=== PATIENT | female | born 1955 | race Caucasian/White ===

== ENCOUNTER 2023-04-22 17:45 | Emergency (ER) | payer MEDICARE, SELFPAY ==
[2023-04-22 17:56] VITALS: BP 131/95; PULSE 94; RESP 18; TEMP 37.1; O2SAT 95; BMI 29.5
--- NOTE | 2023-04-22 18:00 | XR_ITS ---
The [address] [address] Patient Name: REHAN ARTEAGA MRN: [id number] date: 1955 Sex: F Assigned Patient Location: ER Current Patient Location: ER Accession/Order Number: [id number] Exam Date: 04/22/2023 18:05 Report Date: 04/22/2023 18:44 At the request of: NAWAF FARFAN Procedure: XR knee LT 4V EXAM: XR knee LT 4V HISTORY: Knee pain after fall COMPARISON: None. TECHNIQUE: 4 views FINDINGS: No osseous lesion, fracture, dislocation or subluxation. Joint spaces are unremarkable for patient's age. Small medial compartment osteophytes.. No visualized effusion. No visualized soft tissue edema. XR/XR knee LT 4V IMPRESSION: No visualized acute abnormality. Electronically authenticated by: KERRY BULLARD Date: 04/22/2023 18:44
--- NOTE | 2023-04-22 18:01 | ED.LOWEXI1 ---
HPI - Extremity Injury (Lower) General Chief Complaint: Extremity Injury, Lower Stated Complaint: KNEE INJURY Time Seen by Provider: 04/22/23 17:57 Source: patient Mode of arrival: walk-in History of Present Illness HPI Narrative: patient is a 67-year-old female who presents to the emergency department for the evaluation of a left knee injury that occurred three weeks ago. Patient states she missed a step outside her home and fell. She does not know the exact mechanism of injury whether it was twisting or falling on the knee. She had no other associated injuries. She states she called her PCPs office today for evaluation after three weeks because she just returned from [place]. They referred her to the emergency department. She reports pain with weightbearing. No medications prior to arrival. She denies pain to the left ankle or foot. Related Data Previous Rx's Medication Instructions Recorded methylprednisolone 4 mg tablets in 4 mg PO DAILY #21 ea 04/22/23 a dose pack (Medrol (Olvin)) naproxen sodium 550 mg tablet 550 mg PO BID PRN pain #10 tabs 04/22/23 Allergies Allergy/AdvReac Type Severity Reaction Status Date / Time No Known Drug Allergies Allergy Verified 04/22/23 17:56 Review of Systems ROS Constitutional Denies: fever or chills Ears, nose, mouth, and throat Denies: throat pain or neck pain Cardiovascular Denies: chest pain Respiratory Denies: shortness of breath Gastrointestinal Denies: nausea or vomiting Musculoskeletal Reports: joint pain and limited range of motion; Denies: back pain or neck pain Integumentary/Breast Denies: rash Neurological Denies: headache PFSH PFSH Social History Smoking status: Current every day smoker Exam Narrative Exam Narrative: Gen.: Awake, alert, in no distress Head: Normocephalic, atraumatic ENT: Moist mucous membranes Respiratory: No respiratory distress Extremities: left knee with pain on flexion and extension, no bony tenderness of the left ankle or left tibia. No significant swelling, bruising or obvious deformity noted to the left knee. Crepitance on movement of the left knee. Diffuse mild tenderness of the anteromedial aspect of the distal thigh Psych: Normal mood and affect Neuro: No focal neuro deficit Skin: Warm, dry, intact Constitutional Vital Signs, click to edit/add: Last Vital Signs Temp 98.8 F 04/22/23 17:56 Pulse 94 H 04/22/23 17:56 Resp 18 04/22/23 17:56 BP 131/95 H 04/22/23 17:56 Pulse Ox 95 04/22/23 17:56 O2 Del Method Room Air 04/22/23 17:56 Course Vital Signs Vital signs: Vital Signs Temperature 98.8 F 04/22/23 17:56 Pulse Rate 94 H 04/22/23 17:56 Respiratory Rate 18 04/22/23 17:56 Blood Pressure 131/95 H 04/22/23 17:56 Pulse Oximetry 95 04/22/23 17:56 Oxygen Delivery Method Room Air 04/22/23 17:56 Temperature 98.8 F 04/22/23 17:56 Pulse Rate 94 H 04/22/23 17:56 Respiratory Rate 18 04/22/23 17:56 Blood Pressure 131/95 H 04/22/23 17:56 Pulse Oximetry 95 04/22/23 17:56 Oxygen Delivery Method Room Air 04/22/23 17:56 MDM - Extremity Injury (Lower) MDM Narrative Medical decision making narrative: x-rays of the left knee with no evidence of fracture or dislocation. Patient treated for left knee sprain with Andi wrap, knee immobilizer and remains neurovascularly intact. She is referred to orthopedics, Medrol Dosepak and NSAIDs given for home. Return to the Emergency Room if symptoms change or worsen. Medical Records Attestation: I reviewed the patient's medical records. Imaging Data XR knee: Attestation: I have reviewed the pertinent imaging results. Radiologist's impression: Procedure: XR knee LT 4V EXAM: XR knee LT 4V HISTORY: Knee pain after fall COMPARISON: None. TECHNIQUE: 4 views FINDINGS: No osseous lesion, fracture, dislocation or subluxation. Joint spaces are unremarkable for patient's age. Small medial compartment osteophytes.. No visualized effusion. No visualized soft tissue edema. IMPRESSION: No visualized acute abnormality. Electronically authenticated by: KERRY BULLARD Date: 04/22/2023 18:44 Discharge Plan Discharge Chief Complaint: Extremity Injury, Lower Clinical Impression: Left knee sprain Patient Disposition: Home, Self-Care Time of Disposition Decision: 18:49 Condition: Good Prescriptions / Home Meds: New naproxen sodium 550 mg tablet 550 mg PO BID PRN (Reason: pain) Qty: 10 0RF methylprednisolone [Medrol (Olvin)] 4 mg tablets,dose pack 4 mg PO DAILY Qty: 21 0RF Instructions: Knee Sprain (ED) Additional Instructions: Follow up [facility] or [facility] ortho in 3-5 days Stand Alone Forms: Portal Instructions Referrals: SEKOU JARAMILLO [Primary Care Provider] - 1 week
== END 2023-04-22 18:58 | disposition home or self-care (01) ==
PROVIDERS: Emergency Provider Emergency Medicine; PCP Internal Medicine
DX: S83.92XA Sprain of unspecified site of left knee, initial encounter (principal); W10.9XXA Fall (on) (from) unspecified stairs and steps, initial encounter; F17.210 Nicotine dependence, cigarettes, uncomplicated
CPT/HCPCS: 73564; 99283

== ENCOUNTER 2023-08-15 09:27 | Outpatient (OUT) | payer MEDICARE, SELFPAY ==
--- NOTE | 2023-08-15 09:31 | XR_ITS ---
[address] [address] Patient Name: REHAN ARTEAGA MRN: [id number] date: 1955 Sex: F Assigned Patient Location: [facility] Current Patient Location: [facility] Accession/Order Number: [id number] Exam Date: 08/15/2023 09:35 Report Date: 08/15/2023 11:09 At the request of: PEDRO EDOUARD Procedure: XR cervical spine 2-3V EXAM: XR cervical spine 2-3V HISTORY: Meteal Foreign Body In Back S20.459A COMPARISON: None. FINDINGS/IMPRESSION: 1. No acute fracture or dislocation 2. Anterior cervical discectomy and fusion hardware at C5-C6. 3. Moderate disc degeneration at C4-C5. 4. Prevertebral soft tissues are normal. 5. Minimal anterolisthesis of C7 on T1. Minimal anterolisthesis of C3 on C4. Electronically authenticated by: DIMITRY ROBERTSON Date: 08/15/2023 11:09
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
== END 2023-08-15 09:28 | disposition home or self-care (01) ==
LOC: RAD 09:27
PROVIDERS: PCP Internal Medicine; Visit Provider Nurse Practitioner Family
DX: S20.459A Superficial foreign body of unspecified back wall of thorax, initial encounter (principal); S40.25 Superficial foreign body of shoulder; Z98.1 Arthrodesis status; M50.321 Other cervical disc degeneration at C4-C5 level
CPT/HCPCS: 72040; 73030

== ENCOUNTER 2023-08-31 08:03 | Outpatient (OUT) | payer MEDICARE, SELFPAY ==
--- NOTE | 2023-08-31 | CT_ITS ---
[address] [address] Patient Name: REHAN ARTEAGA MRN: [id number] date: 1955 Sex: F Assigned Patient Location: CT Current Patient Location: CT Accession/Order Number: [id number] Exam Date: 08/31/2023 08:05 Report Date: 08/31/2023 23:04 At the request of: PEDRO EDOUARD Procedure: CT knee LT wo con EXAM: CT knee LT wo con HISTORY: Left knee pain COMPARISON: Left knee x-rays 04/22/2023 TECHNIQUE: Multiplanar, multi sequential MRI sequences were performed. FINDINGS: No fracture, dislocation, subluxation or osseous lesion. No knee effusion or visualized popliteal cyst. Mild narrowing of the medial femoral tibial compartment with adjacent medial femoral condyle and tibial plateau osteophytes. The patellofemoral and lateral femorotibial compartments appear unremarkable. The superficial subcutaneous soft tissues are free of edema, hematoma, mass or cyst. No muscle atrophy, fatty infiltration or hematoma. CT/CT knee LT wo con IMPRESSION: Mild age-related medial compartment joint space narrowing and osteophytes. Electronically authenticated by: KERRY BULLARD Date: 08/31/2023 23:04
== END 2023-08-31 08:04 | disposition home or self-care (01) ==
LOC: CT 08:03
PROVIDERS: PCP Internal Medicine; Visit Provider Nurse Practitioner Family
DX: M25.562 Pain in left knee (principal)
CPT/HCPCS: 73700

== ENCOUNTER 2023-12-30 09:19 | Outpatient (OUT) | payer MEDICARE, SELFPAY ==
--- NOTE | 2023-12-30 09:22 | MM_ITS ---
Patient Name: REHAN ARTEAGA MR#: [id number] : 1955 Exam Date: 12/30/2023 Ordering Doctor: DR SEKOU JARAMILLO M.D. RADIOLOGY REPORT PROCEDURE: MM TOMOSYNTHESIS SCREENING BI COMPARISON: MAMMO POST BIOPSY LEFT, 03/02/2022. MG MAMM SCREEN 3D DEWEY CAD, 12/27/2022. INDICATIONS: screening Calculator Name NCI Breast Cancer Risk Assessment Tool 5 Year Breast Cancer Risk 2.90% Lifetime Breast Cancer Risk 10.30% Personal Breast Cancer No Personal Ovarian Cancer No Treatments None Family Cancers Mother with breast cancer at age 35; Mother with uterine cancer at age ~45; Brother with pacreatic cancer at age 40. LOCATION: [facility] BREAST COMPOSITION: Scattered areas fibroglandular density. FINDINGS: DIAGNOSTIC CATEGORY 2--BENIGN FINDING. NO CHANGE FROM COMPARISON. Scattered benign-appearing calcifications are present. Scattered benign-appearing lymph nodes are present. RIGHT BREAST: No significant suspicious finding. LEFT BREAST: No significant suspicious finding. RECOMMENDATIONS: ROUTINE MAMMOGRAM AND CLINICAL EVALUATION IN 12 MONTHS. PLEASE NOTE: A NORMAL MAMMOGRAM DOES NOT EXCLUDE THE POSSIBILITY OF BREAST CANCER. A CLINICALLY SUSPICIOUS PALPABLE LUMP SHOULD BE BIOPSIED. Dictated by: Gerald Jimenez MD on 12/30/2023 at 12:44 Approved by: Gerald Jimenez MD on 12/30/2023 at 12:45
--- OUTSIDE RECORDS SUMMARY | 2023-12-30 09:38 | XMS_ITS | CCD ---
Author Name Unknown Address [address] [place] [id number] Organization [facility] Care Team Providers Care Flash Developer Name Role Phone CLINT, DR SAPP Admitting Unavailable MARROQUIN, DR SAPP Attending Unavailable MARROQUIN, DR SAPP Primary Care Unavailable MARROQUIN, DR SAPP Consulting Unavailable ZIEBER, DR JIMMIE Cai Consulting Unavailable MARROQUIN, DR SAPP Admitting Unavailable MARROQUIN, DR SAPP Attending Unavailable MARROQUIN, DR SAPP Primary Care Unavailable MARROQUIN, DR SAPP Consulting Unavailable ZIEBER, DR JIMMIE Cai Consulting Unavailable MARROQUIN, DR SAPP Admitting Unavailable MARROQUIN, DR SAPP Attending Unavailable MARROQUIN, DR SAPP Primary Care Unavailable MARROQUIN, DR SAPP Consulting Unavailable THANG, LARISSA Consulting Unavailable CLINT, DR SAPP Admitting Unavailable MARROQUIN, DR SAPP Attending Unavailable MARROQUIN, DR SAPP Primary Care Unavailable MARROQUIN, DR SAPP Consulting Unavailable ZIEBER, DR JIMMIE Cai Consulting Unavailable PEDRO EDOUARD Attending Unavailable ANNEMARIE HORVATH Attending Unavailable APLING, AVILA Hill Attending Unavailable SILKEPEDRO Referring Unavailable APLING, AVILA Hill Referring Unavailable JAMARI BOOKER Attending Unavailable Problems Active Problems Problem Classification Problem Date Documented Da te Episodic/Chronic Intestinal obstruction without hernia (4 sources) Partial intestinal obstruction, unspecified as to cause; Translations: [PART INTESTINAL OBST UNS TO CAU] Onset: 11-24-2022 Episodic Menopausal disorders (1 source) Other primary ovarian failure; Translations: [OTHER PRIMARY OVARIAN FAILURE] Onset: 01-04-2023 Chronic Osteoporosis (1 source) Age-related osteoporosis without current pathological fracture; Translations: [AGE-REL OSTEOPOR W/O CURR PATH FX] Onset: 01-04-2023 Chronic Other screening for suspected conditions (not mental disorders or infectious disease) (5 sources) Encounter for screening mammogram for malignant neoplasm of breast; Translations: [Other abnormal and inconclusive findings on diagnostic imaging of breast] Onset: 02-26-2022 Episodic Residual codes; unclassified (1 source) Family history of malignant neoplasm of breast; Translations: [FAMILY HX MALIG NEOPLASM OF BREAST] Onset: 01-04-2023 Episodic Residual codes; unclassified (1 source) Family history of malignant neoplasm of other organs or systems; Translations: [[facility] HX LOUIE NEOPLASM OTH ORGN/SYS] Onset: 01-04-2023 Episodic Substance-related disorders (4 sources) Nicotine dependence, cigarettes, uncomplicated; Translations: [NICOTINE DEPEND CIGARETTES UNCOMP] Onset: 12-27-2022 Chronic Unclassified (3 sources) Unspecified lump in the left breast, overlapping quadrants; Translations: [UNS LUMP LT BREAST OVRLPNG QUADRNTS] Onset: 03-02-2022 Past or Other Problems Problem Classification Problem Date Documented Date Episodic/Chronic Nonmalignant breast conditions (2 sources) Other benign mammary dysplasias of left breast; Translations: [Mammographic microcalcification found on diagnostic imaging of breast] Onset: 2 Episodic Residual codes; unclassified (1 source) Family history of malignant neoplasm of other genital organs; Translations: [[facility] HX LOUIE NEOPLSM OTH GENIT ORGN] Onset: 2 Episodic Residual codes; unclassified (1 source) Family history of malignant neoplasm of digestive organs; Translations: [[facility] LOUIE NEOPLASM DIGESTIV ORGN] Onset: 2 Episodic Results Test Name Value Interpretation Reference Range Facil ity CT LUNG CANCER SCREENINGon 0 12-27-2022 CT LUNG CANCER SCREENING EXAMINATION: CT LUNG CANCER SCREENING HISTORY: Tobacco dependence caused by cigarettes COMPARISON: CT lung cancer screening 12/22/2021 TECHNIQUE: Axial, Coronal, and Sagittal images were created without the administration of IV contrast material. Dose reduction techniques were achieved by using automated exposure control and/or adjustment of mA and/or kV according to patient size and/or use of iterative reconstruction technique. FINDINGS: LUNGS: Multiple calcified granulomas scattered within the lungs. Stable 4 mm nodule within anteromedial left upper lobe at level of hilum. Stable 3 mm pleural-based nodule within posterior left lower lobe. Stable chronic scarring within lateral right upper lobe. PLEURA: No mass, effusion, or pneumothorax. VASCULATURE: No abnormality. YU: Calcified lymph nodes. MEDIASTINUM: Calcified lymph nodes. CARDIAC: No enlargement, pericardial thickening, or significant calcification. AORTA: No aneurysm or dissection. CHEST WALL: No mass or axillary adenopathy BONES: Old, healed upper right rib fractures. LIMITED ABDOMEN: No suspicious findings. Limited images of the upper abdomen. OTHER: Negative. IMPRESSION: 1. Lung-RADS 2- Benign Appearance or Behavior. Nodules with a very low likelihood of becoming a clinically active cancer due to size or lack of growth. Follow-up CT Chest in 1 year. Electronically authenticated by: JIMMIE VIDAL Date: 2022-12-27 10:26 Normal [facility] MG MAMM SCREEN 3D DEWEY CADon 12-27-2022 MG MAMM SCREEN 3D DEWEY CAD Patient: REHAN CLAY Exam Date: 12/27/2022 : 1955 Gender:F Ordering : DR SEKOU MARROQUIN M.D. Admission #: [id number] Family : Order #: [id number] CLICK HERE TO VIEW EXAM RADIOLOGY REPORT PROCEDURE: MAMMOGRAM SCREENING 3D BILATERAL CAD COMPARISON: MG MAMM DIAGNOSTIC 3D DEWEY CAD, 01/02/2022. MG MAMM LT DIAG FU, 02/26/2022. US BREAST LEFT LIMITED, 02/26/2022. MAMMO POST BIOPSY LEFT, 03/02/2022. INDICATIONS: Screening mammography Calculator Name NCI Breast Cancer Risk Assessment Tool 5 Year Breast Cancer Risk 2.90% Lifetime Breast Cancer Risk 10.70% Personal Breast Cancer No Personal Ovarian Cancer No Treatments None Family Cancers Mother with breast cancer at age 35; Mother with uterine cancer at age 45; Brother with pacreatic cancer at age 40. LOCATION: [facility] BREAST COMPOSITION: Scattered areas fibroglandular density. FINDINGS: DIAGNOSTIC CATEGORY 2--BENIGN FINDING: RIGHT BREAST: No significant suspicious finding. Scattered benign-appearing calcifications are present. No significant change has occurred. LEFT BREAST: No significant suspicious finding. Stable subareolar nodule with biopsy marker clip. No significant change has occurred. RECOMMENDATIONS: ROUTINE MAMMOGRAM AND CLINICAL EVALUATION IN 12 MONTHS. PLEASE NOTE: A NORMAL MAMMOGRAM DOES NOT EXCLUDE THE POSSIBILITY OF BREAST CANCER. A CLINICALLY SUSPICIOUS PALPABLE LUMP SHOULD BE BIOPSIED. Dictated by: Jimmie Vidal M.D. on 12/27/2022 at 09:30 Approved by: Jimmie Vidal M.D. on 12/27/2022 at 09:32 Normal [facility] XR DEXA BONE DENSITYon 12-27 XR DEXA BONE DENSITY EXAMINATION: XR DEXA BONE DENSITY, 12/27/2022 8:52 AM EDT HISTORY: Primary ovarian failure COMPARISON: None. TECHNIQUE: Dual-energy X-ray absorptiometry (DEXA) bone density study performed for the axial skeleton. FINDINGS: SPINE ANALYSIS: Average bone mineral density is 0.9 and 4 g/cm2. T-score (standard deviation relative to young adult mean): -1.5 . HIP ANALYSIS: Lowest bone mineral density is within the left femoral trochanter, 0.499 g/cm2. T-score (standard deviation relative to young adult mean): -3.1 . IMPRESSION: World [employer] Classification: Osteoporosis - High Fracture Risk Electronically authenticated by: JIMMIE VIDAL Date: 2022-12-27 09:34 Normal [facility] CREATININEon 11-24-2022 Creatinine [Mass/Vol] 0.66 mg/dL Normal 0.55-1.02 [facility] Comment on above: Performed By: #### C JOESPH #### [facility] [address] [place] [address] Dr. Alexis Al EGFR-AF SOUTH AFRICAN >60 Normal >=60 [facility] Comment on above: Performed By: #### C JOESPH #### [facility] [address] [place] [address] Dr. Alexis Al EGFR-NON AF SOUTH AFRICAN >60 Normal >=60 [facility] Comment on above: Performed By: #### C JOESPH #### [facility] [address] [place] [address] ABD/PELV W CONon 11-24-[address] ABD/PELV W CON CLINICAL HISTORY: Partial bowel obstruction. Acute generalized abdominal pain, with bloating and constipation. EXAMINATION: Enhanced CT scan of the abdomen and pelvis: 11/24/2022. COMPARISON: None. TECHNIQUE: 3 mm axial images from lung bases through ischial tuberosities following administration of intravenous as well as oral contrast were obtained. Sagittal and coronal reconstructions were performed. Dose reduction techniques were achieved by using automated exposure control and/or adjustment of mA and/or kV according to patient size and/or use of iterative reconstruction technique. FINDINGS: The visualized lung bases, cardiac, posterior mediastinal structures seem normal. CT ABDOMEN: The liver, spleen, gallbladder seem normal. Adrenal glands, pancreas, right kidney are normal. In the left kidney upper pole posteriorly there is a low-attenuation lesion which measures approximately 1.0 cm in size with average Hounsfield units of 31. There is an additional low-density lesion measuring approximately 3 mm in the midpole anterior cortex. The rest of the kidneys are normal. There is no hydronephrosis or nephrolithiasis. The abdominal aorta is moderately atherosclerotic. There is no aneurysm. The bowel loops are of normal caliber and contrast outlines of the entire small as well as large bowel loops. Appendix is not identified. CT PELVIS: There is no ureterolithiasis. The bladder seems normal. There is no pelvic adenopathy. There are no focal fluid collections. The uterus and ovaries are not seen. The visualized osseous structures are normal. IMPRESSION: 1. There is no evidence of inflammatory process involving bowel loops. There is no bowel obstruction. 2. Previous hysterectomy. 3. No nephro or ureterolithiasis. There are a few tiny cysts in the left kidney. Electronically authenticated by: LARISSA DESIR Date: 2022-11-24 11:36 Normal [facility] US VAC ASST BX BRST LT W CLI German 03-09-2022 US VAC ASST BX BRST LT W CLIP Begin Addendum #1 COLLECTED DATE/TIME: 03/02/2022 09:44 EDT Final Diagnosis Report for [facility] [place] [place] LEFT BREAST 3 O'CLOCK MASS; BIOPSY: -BENIGN BREAST PARENCHYMA WITH FIBROCYSTIC CHANGE, APOCRINE METAPLASIA, AND FOCAL MICROCALCIFICATION. 03/04/[address] Marroquin. Verified with the nurse that report was present in office. Original Report PROCEDURE: ULTRASOUND BIOPSY VACCUUM ASSISTED LEFT WITH CLIP COMPARISON: US BREAST LEFT LIMITED, 02/26/2022. INDICATIONS: Mammography abnormal DESCRIPTION: After obtaining informed consent, a vacuum assisted ultrasound-guided biopsy was performed in the usual sterile manner. The location of the biopsy was then marked as indicated below. FINDINGS: RECOMMENDATIONS: SPECIMEN #, LOCATION: 4 core samples, left breast subareolar 3 o'clock complex cyst. BIOPSY NEEDLE: 13 gauge Elite vacuum core biopsy needle. MARKERS PLACED: A single metallic marker was placed in the appropriate targeted location. MEDICATION: Buffered 1% lidocaine with epinephrine administered locally. COMPLICATIONS: None. PATHOLOGY LAB: Pending. CONCLUSION: 1. Uneventful ultrasound-guided breast biopsy. 2. Pathology results are pending. An addendum to this report will be provided after pathology results are available. Normal [facility] MAMMO POST BIOPSY LEFTon MAMMO POST BIOPSY LEFT Patient: REHAN CLAY Exam Date: 03/02/2022 : 1955 Gender:F Ordering : DR SEKOU MARROQUIN M.D. Admission #: [id number] Family : Order #: [id number] CLICK HERE TO VIEW EXAM RADIOLOGY REPORT PROCEDURE: MAMMOGRAM POST BIOPSY IMAGES COMPARISON: MG MAMM LT DIAG FU, 02/26/2022. MG MAMM DIAGNOSTIC 3D DEWEY CAD, 01/02/2022. INDICATIONS: Mammography abnormal BREAST COMPOSITION: FINDINGS: BIOPSY MARKER: A metallic marker has been placed in the targeted location within the subareolar region of the left breast. BREAST FINDINGS: Expected post biopsy findings. RECOMMENDATIONS: Dictated by: Jimmie Vidal M.D. on 03/02/2022 at 10:04 Approved by: Jimmie Vidal M.D. on 03/02/2022 at 10:37 Normal [facility] MG MAMM LT DIAG FUon 022 MG MAMM LT DIAG FU Patient: REHAN CLAY Exam Date: 02/26/2022 : 1955 Gender:F Ordering : DR SEKOU MARROQUIN M.D. Admission #: [id number] Family : Order #: [id number] CLICK HERE TO VIEW EXAM RADIOLOGY REPORT PROCEDURE: MAMMOGRAM LEFT DIAGNOSTIC DIGITAL FOLLOW UP, 02/26/2022, 13:55 ULTRASOUND BREAST LEFT LIMITED, 02/26/2022, 14:13 COMPARISON: MG MAMM DIAGNOSTIC 3D DEWEY CAD, 04/02/2018. MG MAMM SCREEN 3D DEWEY CAD, 03/21/2017. MG MAMM DIAGNOSTIC 3D DEWEY CAD, 01/02/2022. Ultrasound breast bilateral complete December 22, 2021 INDICATIONS: Abnormal findings on diagnostic imaging of breast Calculator Name NCI Breast Cancer Risk Assessment Tool 5 Year Breast Cancer Risk 2.80% Lifetime Breast Cancer Risk 11.10% Personal Breast Cancer No Personal Ovarian Cancer No Treatments None Family Cancers Mother with breast cancer at age 35; Mother with uterine cancer at age 45; Brother with pacreatic cancer at age 40. LOCATION: [facility] BREAST COMPOSITION: Scattered areas fibroglandular density. FINDINGS: DIAGNOSTIC CATEGORY 4--SUSPICIOUS FOR MALIGNANCY. FINDING DOES NOT EXHIBIT CLASSIC FINDINGS OF BREAST CANCER: LEFT BREAST: Spot magnification views demonstrate a partially circumscribed 8 x 5 mm mass in the subareolar region. Ultrasound evaluation demonstrates a 4 mm round anechoic cystic structure within versus adjacent a heterogeneous soft tissue structure at the 3 o'clock position; overall combined measurements are 8 x 7 x 4 millimeters. I suspect this represents 1 lesion, and corresponds to the mammographic findings which are just slightly larger than seen on the 2018 in 2016 studies. Ultrasound-guided tissue sampling is recommended. Alternatively, follow-up ultrasound evaluation in 6 months could be performed to document stability. RECOMMENDATIONS: ULTRASOUND-GUIDED CORE BIOPSY: LEFT BREAST PLEASE NOTE: A NORMAL MAMMOGRAM DOES NOT EXCLUDE THE POSSIBILITY OF BREAST CANCER. A CLINICALLY SUSPICIOUS PALPABLE LUMP SHOULD BE BIOPSIED. Dictated by: Jimmie Vidal M.D. on 02/26/2022 at 15:11 Approved by: Jimmie Vidal M.D. on 02/26/2022 at 15:16 Normal [facility] US BREAST LEFT LIMITEDon US BREAST LEFT LIMITED Patient: REHAN CLAY Exam Date: 02/26/2022 : 1955 Gender:F Ordering : DR SEKOU MARROQUIN M.D. Admission #: [id number] Family : Order #: [id number] CLICK HERE TO VIEW EXAM RADIOLOGY REPORT PROCEDURE: MAMMOGRAM LEFT DIAGNOSTIC DIGITAL FOLLOW UP, 02/26/2022, 13:55 ULTRASOUND BREAST LEFT LIMITED, 02/26/2022, 14:13 COMPARISON: MG MAMM DIAGNOSTIC 3D DEWEY CAD, 04/02/2018. MG MAMM SCREEN 3D DEWEY CAD, 03/21/2017. MG MAMM DIAGNOSTIC 3D DEWEY CAD, 01/02/2022. Ultrasound breast bilateral complete December 22, 2021 INDICATIONS: Abnormal findings on diagnostic imaging of breast Calculator Name NCI Breast Cancer Risk Assessment Tool 5 Year Breast Cancer Risk 2.80% Lifetime Breast Cancer Risk 11.10% Personal Breast Cancer No Personal Ovarian Cancer No Treatments None Family Cancers Mother with breast cancer at age 35; Mother with uterine cancer at age 45; Brother with pacreatic cancer at age 40. LOCATION: [facility] BREAST COMPOSITION: Scattered areas fibroglandular density. FINDINGS: DIAGNOSTIC CATEGORY 4--SUSPICIOUS FOR MALIGNANCY. FINDING DOES NOT EXHIBIT CLASSIC FINDINGS OF BREAST CANCER: LEFT BREAST: Spot magnification views demonstrate a partially circumscribed 8 x 5 mm mass in the subareolar region. Ultrasound evaluation demonstrates a 4 mm round anechoic cystic structure within versus adjacent a heterogeneous soft tissue structure at the 3 o'clock position; overall combined measurements are 8 x 7 x 4 millimeters. I suspect this represents 1 lesion, and corresponds to the mammographic findings which are just slightly larger than seen on the 2018 in 2017 studies. Ultrasound-guided tissue sampling is recommended. Alternatively, follow-up ultrasound evaluation in 6 months could be performed to document stability. RECOMMENDATIONS: ULTRASOUND-GUIDED CORE BIOPSY: LEFT BREAST PLEASE NOTE: A NORMAL MAMMOGRAM DOES NOT EXCLUDE THE POSSIBILITY OF BREAST CANCER. A CLINICALLY SUSPICIOUS PALPABLE LUMP SHOULD BE BIOPSIED. Dictated by: Jimmie Vidal M.D. on 02/26/2022 at 15:11 Approved by: Jimmie Vidal M.D. on 02/26/2022 at 15:16 Normal [facility] Lipid Panelon 12-07-2021 Cholesterol [Mass/Vol] 236 mg/dL High 125-200 [facility] Comment on above: Result Comment: Low risk < 200mg/dL Borderline risk 201-239 mg/dl High risk > or equal to 240 Performed By: #### L IPD #### [facility] [address], [place] [id number] Cholesterol in HDL [Mass/Vol] 53 mg/dL Normal >40 [facility] Comment on above: Result Comment: High Cardiovascular Risk HDL <40 mg/dL Low Cardiovascular Risk HDL > or equal to 60 mg/dl Performed By: #### L IPD #### [facility] [address], [place] [id number] Cholesterol in LDL [Mass/Vol] 159 mg/dL Normal [facility] Comment on above: Result Comment: LDL ATP III CLASSIFICATION LDL less than 100 mg/dl Optimal LDL 100-129 mg/dl Near or above optimal LDL 130-159 Borderline high LDL 160-189 High LDL greater than 189 mg/dl Very High Performed By: #### L IPD #### [facility] [address], [place] [id number] Cholesterol in VLDL [Mass/Vol] 24 mg/dL Normal [facility] [employer] Comment on above: Performed By: #### L IPD #### [facility] [address], [place] [id number] Cholesterol.total/ Cholesterol in HDL [Mass ratio] 4 {ratio} Normal [facility] [employer] Comment on above: Performed By: #### L IPD #### [facility] [address], [place] [id number] Triglyceride [Mass/Vol] 121 mg/dL Normal 30-150 [facility] [employer] [employer] Comment on above: Result Comment: TRIG ATPIII CLASSIFICATIONS TRIG less than 150 mg/dl Normal TRIG 150-199 mg/dl Borderline High TRIG 200-500 mg/dl High TRIG greather than 500 mg/dl Very High Performed By: #### L IPD #### [facility] [address], [place] [id number] Encounters Encounter Date Encounter Type Care Provider Facility Start: 12-06-2023 End: 12-06-2023 ambulatory ANNEMARIE HORVATH Not Available Start: 10-22-2023 End: 10-22-2023 ambulatory PEDRO EDOUARD Not Available Start: 09-24-2023 End: 09-24-2023 ambulatory JAMARI BOOKER Not Available Start: 09-09-2023 End: 09-10-2023 ambulatory AVILA JOHNSON Not Available Start: 12-27-2022 End: 12-28-[address] SEKOU MARROQUIN Facility:[facility] Start: 11-24-2022 End: 11-25-[address] SEKOU MARROQUIN Facility:[facility] Start: 03-02-2022 End: 03-02-[address] SEKOU MARROQUIN Facility:[facility] Start: 02-26-2022 End: 02-27-[address] SEKOU MARROQUIN Facility:[facility] Payers Date Payer Category Payer Unknown [id number] 1955 Unknown [id number] 2.16.84 [id number] 1955 Unknown [id number] 2.16.84 [id number] 1955 Unknown [id number] 2.16.84 [id number] 1955 Unknown [id number] 2.16.84 [id number] 1955 Unknown [id number] 2.16.84 [id number] 1955 Unknown [id number] 2.16.84 [id number] 1955 Unknown [id number] [id number] .[id number] 1955 Unknown [id number] [id number] .[id number] 1955 Unknown [id number] Summary Purpose Family History No Family History Records FoundNo Family History Records FoundNo Family History Records Found Advance Directives No Advanced Directives Records FoundNo Advanced Directives Records FoundNo Advanced Directives Records Found Additional Source Comments INFORMATION SOURCE (unrecogn ized section and content) DATE CREATED AUTHOR 12/08/2021 [facility]ical Specialist DATE CREATED AUTHOR AUTHOR'S ORGANIZ ATION 01/05/2023 [facility] DATE CREATED AUTHOR AUTHOR'S ORGANIZ ATION 12/14/2023 [facility] Specialists [facility] FOR RECORDS PERTAINING TO PATIENTS WHO ARE OR HAVE BEEN ENROLLED IN A CHEMICAL DEPENDENCY/SUBSTANCEABUSE PROGRAM, SOME INFORMATION MAY BE OMITTED. This clinical summary was aggregated from multiple sources. Caution should be exercised in using it in the provision of clinical care. This summary normalizes information from multiple sources, and as a consequence, information in this document may materially change the coding, format and clinical context of patient data. In addition, data may be omitted in some cases. CLINICAL DECISIONS SHOULD BE BASED ON THE PRIMARY CLINICAL RECORDS. [facility] [employer] [facility]. provides no warranty or guarantee of the accuracy or completeness of information in this document.
== END 2023-12-30 09:20 | disposition home or self-care (01) ==
LOC: MAMMO 09:19
PROVIDERS: PCP Internal Medicine; Visit Provider Internal Medicine
DX: Z12.31 Encounter for screening mammogram for malignant neoplasm of breast (principal); Z80.3 Family history of malignant neoplasm of breast; Z80.8 Family history of malignant neoplasm of other organs or systems
CPT/HCPCS: 77063; 77067

== ENCOUNTER 2024-01-14 07:58 | Outpatient (OUT) | payer MEDICARE, SELFPAY ==
--- OUTSIDE RECORDS SUMMARY | 2024-01-14 08:00 | XMS_ITS | CCD ---
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 Role Phone CLINT, DR SAPP Admitting [...] Unavailable ZIEBER, DR JIMMIE Cai Consulting Unavailable SILKEPEDRO Attending Unavailable ANNEMARIE HORVATH Attending Unavailable APLINGAVILA Attending Unavailable SILKEPEDRO Referring Unavailable APLINGAVILA Referring Unavailable JHONYJAMARI SMILEY Attending Unavailable SILKE, PEDRO Kennedy Attending Unavailable Problems Active Problems Problem Classification [...] neoplasm of other organs or systems; Translations: [[facility] HX LOUIE NEOPLASM OTH ORGN/SYS] Onset: 01-04-2023 [...] malignant neoplasm of other genital organs; Translations: [FAM HX LOUIE NEOPLSM OTH GENIT ORGN] Onset: 2 Episodic Residual codes; unclassified (1 source) Family history of malignant neoplasm of digestive organs; Translations: [[facility] HX LOUIE NEOPLASM DIGESTIV ORGN] Onset: 2 Episodic [...] JIMMIE VIDAL Date: 2022-12-27 10:26 Normal [facility] MG MAMM SCREEN 3D DEWEY CADon 12-27-2022 MG MAMM SCREEN 3D DEWEY CAD Patient: REHAN CLAY Exam Date: 12/27/2022 : 1955 Gender:F Ordering : DR SEKOU MARROQUIN M.D. Admission #: [id number] Family : Order #: [id number] CLICK HERE TO VIEW EXAM RADIOLOGY REPORT [...] pacreatic cancer at age 42. LOCATION: [facility] BREAST COMPOSITION: Scattered areas fibroglandular density. [...] Vidal M.D. on 12/27/2022 at 09:32 Normal [facility] XR DEXA BONE DENSITYon 12-27 XR [...] by: JIMMIE VIDAL Date: 2022-12-27 09:34 Normal [facility] CREATININEon 11-24-2022 Creatinine [Mass/Vol] 0.66 mg/dL Normal 0.55-1.02 [facility] Comment on above: Performed By: #### C JOESPH #### [facility] [address] [place] [address] Dr. Alexis Al EGFR-AF ARGENTINE >60 Normal >=60 [facility] Comment on above: Performed By: #### C JOESPH #### [facility] [address] [place] [address] Dr. Alexis Al EGFR-NON AF ARGENTINE >60 Normal >=60 [facility] Comment on above: Performed By: #### C JOESPH #### [facility] [address] [place] [address] ABD/PELV W CONon [...] LARISSA DESIR Date: 2022-11-24 11:36 Normal [facility] VAC ASST BX BRST LT W CLI German 03-09-2022 US VAC ASST BX BRST LT W CLIP Begin Addendum #1 COLLECTED DATE/TIME: 03/02/2022 09:44 EDT Final Diagnosis Report for [facility] [place] LEFT BREAST 3 O'CLOCK MASS; BIOPSY: [...] provided after pathology results are available. Normal [facility] MAMMO POST BIOPSY LEFTon MAMMO POST BIOPSY LEFT Patient: REHAN CLAY Exam Date: 03/02/2022 : 1955 Gender:F Ordering : DR SEKOU MARROQUIN M.D. Admission #: [id number] Family : Order #: [id number] CLICK HERE TO VIEW EXAM RADIOLOGY REPORT [...] Vidal M.D. on 03/02/2022 at 10:37 Normal [facility] MG MAMM LT DIAG FUon 022 MG MAMM LT DIAG FU Patient: REHAN CLAY Exam Date: 02/26/2022 : 1955 Gender:F Ordering : DR SEKOU MARROQUIN M.D. Admission #: [id number] Family : Order #: [id number] CLICK HERE TO VIEW EXAM RADIOLOGY REPORT [...] pacreatic cancer at age 42. LOCATION: [facility] BREAST COMPOSITION: Scattered areas fibroglandular density. [...] M.D. on 02/26/2022 at 15:16 Normal [facility] US BREAST LEFT LIMITEDon US BREAST LEFT LIMITED Patient: REHAN CLAY Exam Date: 02/26/2022 : 1955 Gender:F Ordering : DR SEKOU MARROQUIN M.D. Admission #: [id number] Family : Order #: [id number] CLICK HERE TO VIEW EXAM RADIOLOGY REPORT [...] pacreatic cancer at age 42. LOCATION: [facility] BREAST COMPOSITION: Scattered areas fibroglandular density. [...] M.D. on 02/26/2022 at 15:16 Normal [facility] Lipid Panelon 12-07-2021 Cholesterol [Mass/Vol] 236 mg/dL High 125-200 [facility] Comment on above: Result Comment: Low risk < 200mg/dL Borderline risk 201-239 mg/dl High risk > or equal to 240 Performed By: #### L IPD #### [facility] [address], [place] [id number] Cholesterol in HDL [Mass/Vol] 53 mg/dL Normal >40 [facility] Comment on above: Result Comment: High Cardiovascular Risk HDL <40 mg/dL Low Cardiovascular Risk HDL > or equal to 60 mg/dl Performed By: #### L IPD #### [facility] [address], [place] [id number] Cholesterol in LDL [Mass/Vol] 159 mg/dL Normal [facility] Specialist Comment on above: Result Comment: LDL ATP III CLASSIFICATION LDL less than 100 mg/dl Optimal LDL 100-129 mg/dl Near or above optimal LDL 130-159 Borderline high LDL 160-189 High LDL greater than 189 mg/dl Very High Performed By: #### L IPD #### [facility] [address], [place] [id number] Cholesterol in VLDL [Mass/Vol] 24 mg/dL Normal [facility] Comment on above: Performed By: #### L IPD #### [facility] [address], [place] [id number] Cholesterol.total/ Cholesterol in HDL [Mass ratio] 4 {ratio} Normal [facility] Comment on above: Performed By: #### L IPD #### [facility] [address], [place] [id number] Triglyceride [Mass/Vol] 121 mg/dL Normal 30-150 [facility] Comment on above: Result Comment: TRIG ATPIII CLASSIFICATIONS TRIG less than 150 mg/dl Normal TRIG 150-199 mg/dl Borderline High TRIG 200-500 mg/dl High TRIG greather than 500 mg/dl Very High Performed By: #### L IPD #### [facility] [address], [place] [id number] Encounters Encounter Date Encounter Type Care Provider Facility Start: 01-07-2024 End: 01-07-2024 ambulatory PEDRO EDOUARD Not Available Start: 12-06-2023 End: 12-06-2023 ambulatory ANNEMARIE HORVATH [...] Facility:[facility] Payers Date Payer Category Payer Unknown [id number] 1955 Unknown [id number] 2.16.84 [id number] 1955 Unknown [id number] 2.16.84 [id number] 1955 Unknown [id number] 2.16.84 [id number] 1955 Unknown [id number] 2.16.84 [id number] 1955 Unknown [id number] 2.16.84 [id number] 1955 Unknown [id number] 2.16.84 [id number] 1955 Unknown [id number] 2.16.84 [id number] 1955 Unknown [id number] 2.16.840 .[id number] 1955 Unknown [id number] 2.16.840 .[id number] 1955 Unknown [id number] [id number] .[id number] Summary Purpose Family History No Family History Records FoundNo Family History Records FoundNo Family History Records Found Advance Directives No Advanced Directives Records FoundNo Advanced Directives Records FoundNo Advanced Directives Records Found Additional Source Comments INFORMATION SOURCE (unrecogn ized section and content) DATE CREATED AUTHOR 12/08/2021 [facility] dical Specialist DATE CREATED AUTHOR AUTHOR'S ORGANIZ ATION 01/05/2023 [facility] DATE CREATED AUTHOR AUTHOR'S ORGANIZ ATION 01/08/2024 [facility] dical Specialists [facility] FOR RECORDS PERTAINING TO PATIENTS WHO ARE [...] BE BASED ON THE PRIMARY CLINICAL RECORDS. [facility] provides no warranty or guarantee of the accuracy or completeness of information in this document.
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
== END 2024-01-14 07:59 | disposition home or self-care (01) ==
LOC: CT 07:58
PROVIDERS: PCP Internal Medicine; Visit Provider Nurse Practitioner Family
DX: J43.2 Centrilobular emphysema (principal); Z12.2 Encounter for screening for malignant neoplasm of respiratory organs; Z87.891 Personal history of nicotine dependence; R91.1 Solitary pulmonary nodule
CPT/HCPCS: 71271

== ENCOUNTER 2025-01-27 08:31 | Outpatient (OUT) | payer MEDICARE, SELFPAY ==
--- NOTE | 2025-01-27 08:48 | MM_ITS ---
Patient Name: REHAN NGO MR#: [id number] : 1955 Exam Date: 01/27/2025 Ordering Doctor: PEDROSHEMAR EDOUARD SERVICE COORDINATOR [facility] RADIOLOGY REPORT PROCEDURE: MM TOMOSYNTHESIS SCREENING BI COMPARISON: MM TOMOSYNTHESIS SCREENING BI, 12/30/2023. MG MAMM SCREEN 3D DEWEY CAD, 12/27/2022. MAMMO POST BIOPSY LEFT, 03/02/2022. MG MAMM SCREEN 3D DEWEY CAD, 03/21/2017. INDICATIONS: Screening Calculator Name NCI Breast Cancer Risk Assessment Tool 5 Year Breast Cancer Risk 3.00% Lifetime Breast Cancer Risk 9.90% Personal Breast Cancer No Personal Ovarian Cancer No Treatments None Family Cancers Mother with breast cancer at age 35; Mother with uterine cancer at age ~45; Brother with pacreatic cancer at age 40. LOCATION: [facility] BREAST COMPOSITION: There are scattered areas of fibroglandular density. FINDINGS: DIAGNOSTIC CATEGORY 1--NEGATIVE. RIGHT BREAST: No significant suspicious finding. LEFT BREAST: No significant suspicious finding. RECOMMENDATIONS: ROUTINE MAMMOGRAM AND CLINICAL EVALUATION IN 12 MONTHS. PLEASE NOTE: A NORMAL MAMMOGRAM DOES NOT EXCLUDE THE POSSIBILITY OF BREAST CANCER. A CLINICALLY SUSPICIOUS PALPABLE LUMP SHOULD BE BIOPSIED. Dictated by: Jefe Melton DO on 01/27/2025 at 14:19 Approved by: Jefe Melton DO on 01/27/2025 at 14:21
--- OUTSIDE RECORDS SUMMARY | 2025-01-27 08:48 | XMS_ITS | CCD ---
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 referral to Dermatology Next Visit: rec pt schedule FBSE documented in this encounter [facility] History of Present illness Narrative 01-06-2025 Pedro Lowry NP - 01/06/2025 11:30 AM EDT Note Date & Type Note Facility 01-06-2025 History of Presen t illness Narrative Images from the original note were not included. Subjective : Chief Complaint: Emily Clay is an 69 y.o. female here for an annual wellness visit. I have reviewed and reconciled the history and medication list with the patient today. Current Outpatient Medications Medication Sig Dispense Refill albuterol (2.5 MG/3ML) 0.083% nebulizer solution Take 3 mL (2.5 mg) by nebulization every 6 (six) hours if needed for wheezing 75 mL 3 albuterol HFA 90 mcg/act inhaler Inhale 1 puff every 6 (six) hours if needed for wheezing or shortness of breath 18 g 3 aluminum-magnesium hydroxide-simethicone (Mylanta Maximum Strength) 400-400-40 MG/5ML suspension Take 5 mL by mouth Daily as needed. diphenhydrAMINE (Benadryl Allergy) 25 MG tablet Take 25 mg by mouth Daily as needed. gabapentin (Neurontin) 300 MG capsule Take 1 capsule (300 mg) by mouth in the morning and 1 capsule (300 mg) in the evening and 1 capsule (300 mg) before bedtime. 270 capsule 3 hydrocortisone (Anusol-HC) 2.5 % rectal cream Insert into the rectum 2 (two) times a day. 30 g 2 loratadine (Claritin) 10 MG tablet Take 1 tablet (10 mg) by mouth Daily as needed for allergies 100 tablet 3 omeprazole (PriLOSEC) [address] capsule Take 1 capsule (40 mg) by mouth in the morning. Take before meals. 90 capsule 3 No current facility-administered medications for this visit. Review of Systems Constitutional: Negative. HENT: Negative. Eyes: Negative. Respiratory: Negative. Cardiovascular: Negative. Gastrointestinal: Negative. Genitourinary: Negative. Musculoskeletal: Left knee pain Skin: Negative. Neurological: Negative. Psychiatric/Behavioral: Negative. All other systems reviewed and are negative. Endocrine: Negative. List of current healthcare providers: Patient Care Team: Enio Marroquin MD as PCP - General (Internal Medicine) Enio Marroquin MD as PCP - [facility] Medicare Annual Visit Over the past 2 weeks, how often have you been bothered by any of the following problems? Little interest or pleasure in doing things: Not at all Feeling down, depressed, or hopeless: Not at all Patient Health Questionnaire-2 Score: 0 Daly Fall Risk History of Falling, Immediate or Within 3 Months: No Health Risk Assessment Form Do you need help eating, bathing, using the toilet, dressing, or getting around your home?: No Can you prepare your own meals?: Yes Can you do your own housework without help?: Yes Can you shop for groceries or clothes without help?: Yes Do you exercise for about 20 minutes 3 or more days a week?: Yes Can you mange your money, credit cards and accounts, pay bills and taxes?: Yes Cognitive Screening Three Word Registration: Banana, [place], Chair Clock Drawing: Normal Clock - 2 Three Word Recall: All 3 words correct - 3 Total Score (0-5 Points): 5 Pain Assessment Pain Score: 3 Advance Care Planning Do you have a living will?: No Do you have a medical power of consumer attorney?: No Objective : BP 118/78 Pulse 79 Resp 17 Ht 5' Wt 141 lb 6.4 oz SpO2 96% BMI 27.62 kg/m No results found. Physical Exam Vitals reviewed. Constitutional: Appearance: Normal appearance. HENT: Head: Normocephalic. Nose: Nose normal. Mouth/Throat: Mouth: Mucous membranes are moist. Pharynx: Oropharynx is clear. Eyes: Conjunctiva/sclera: Conjunctivae normal. Cardiovascular: Rate and Rhythm: Normal rate and regular rhythm. Pulmonary: Effort: Pulmonary effort is normal. Breath sounds: Normal breath sounds. Abdominal: General: Bowel sounds are normal. Palpations: Abdomen is soft. Musculoskeletal: General: Normal range of motion. Cervical back: Neck supple. Skin: General: Skin is warm and dry. Comments: Mole on back scaly and itching. Neurological: General: No focal deficit present. Mental Status: She is alert and oriented to person, place, and time. Psychiatric: Mood and Affect: Mood normal. Behavior: Behavior normal. Thought Content: Thought content normal. Assessment/Plan : The following health maintenance schedule was reviewed with the patient and provided in printed form in the after visit summary: Health Maintenance Topic Date Due Pneumococcal Vaccine: 65+ Years (3 of 3 - PPSV23 or PCV20) 02/12/2024 Influenza Vaccine (1) Never done Mammogram 12/29/2024 Medicare Annual Wellness (AWV) 01/06/2026 Colorectal Cancer Screening 01/02/2033 Advance Care Planning Discussed living will and DPOA 1. Polyneuropathy This is a chronic medical condition that is stable since last assessment. No changes in treatment are suggested at this time. - gabapentin (Neurontin) 300 MG capsule; Take 1 capsule (300 mg) by mouth in the morning and 1 capsule (300 mg) in the evening and 1 capsule (300 mg) before bedtime. Dispense: 270 capsule; Refill: 3 2. Gastroesophageal reflux disease without esophagitis GERD discussed with the patient. Pt educated regarding avoiding high acid food triggers such as caffeine products, fruits high in acid, spicy foods, and tomato based products. Advsied to avoid all NSAIDS medications, i.e. Motrin, Aleve. Ok to use Tylenol prn. Encouraged pt to avoid laying down immediately after meals. - omeprazole (PriLOSEC) [address] capsule; Take 1 capsule (40 mg) by mouth in the morning. Take before meals. Dispense: 90 capsule; Refill: 3 - Comprehensive metabolic panel; Future - Comprehensive metabolic panel 3. Panlobular emphysema (CMS/HCC) This is a chronic medical condition that is stable since last assessment. No changes in treatment are suggested at this time. - albuterol HFA 90 mcg/act inhaler; Inhale 1 puff every 6 (six) hours if needed for wheezing or shortness of breath Dispense: 18 g; Refill: 3 - Comprehensive metabolic panel; Future - Comprehensive metabolic panel - CT lung screening low dose; Future 4. Shortness of breath This is a chronic medical condition that is stable since last assessment. No changes in treatment are suggested at this time. - albuterol HFA 90 mcg/act inhaler; Inhale 1 puff every 6 (six) hours if needed for wheezing or shortness of breath Dispense: 18 g; Refill: 3 5. Dyslipidemia (CMS/HCC) Await lab - Lipid panel; Future - Lipid panel 6. Seasonal allergies This is a chronic medical condition that is stable since last assessment. No changes in treatment are suggested at this time. 7. Medicare annual wellness visit, subsequent (Primary) Reviewed all relevant preventative screenings with the patient in detail. Medicare Wellness form completed and will be scanned into patient's chart. All needed testing was ordered. Will continue with yearly Medicare Wellness exams. 8. Decreased estrogen level This is a chronic medical condition that is stable since last assessment. No changes in treatment are suggested at this time. - DEXA bone density; Future 9. Anemia, unspecified type Await lab - Comprehensive metabolic panel; Future - CBC; Future - Comprehensive metabolic panel - CBC 10. Vitamin D deficiency Await lab - Vitamin D 25 hydroxy; Future - Vitamin D 25 hydroxy 11. Screening for thyroid disorder Await lab - TSH; Future - TSH 12. Routine general medical examination at health care facility Reviewed all relevant preventative screenings with the patient in detail. Medicare Wellness form completed and will be scanned into patient's chart. All needed testing was ordered. Will continue with yearly Medicare Wellness exams. 13. Encounter for screening mammogram for malignant neoplasm of breast Await results of mammogram - Bilateral screening mammogram; Future - Bilateral screening mammogram 14. Screening for lung cancer Await results of CT scan - CT lung screening low dose; Future 15. Tobacco dependence Discussed smoking cessation with the patient. Encouraged patient to cut back and soon quit smoking. Health risks of smoking, and benefits of quitting reviewed with the patient. - CT lung screening low dose; Future 16. Nicotine dependence, cigarettes, uncomplicated Discussed smoking cessation with the patient. Encouraged patient to cut back and soon quit smoking. Health risks of smoking, and benefits of quitting reviewed with the patient. - CT lung screening low dose; Future 17. Acute pain of left knee Medication choice and dosage is appropriate for patient's current medical conditions. Patient will continue to be required to be seen in our office at least every three months for monitoring. At each follow up visit I will reassess the patient's need for the medication. Patient is to have this medication prescribed only through this office. Failure to follow the rules and regulations will result in tapering and discontinuation of medications if applicable. Patient verbalized understanding. [place]AR[place] Report was reviewed for this patient. - HYDROcodone-acetaminophen ([place]) 5-325 MG tablet; Take 1 tablet by mouth every 6 (six) hours if needed for severe pain for up to 7 days Dispense: 28 tablet; Refill: 0 18. Change in skin mole Referral sent to dermatology - Ambulatory referral to Dermatology; Future Orders Placed This Encounter Procedures TSH Standing Status: Future Number of Occurrences: 1 Standing Expiration Date: 01/06/2026 Order Specific Question: Print requisition? Answer: No Vitamin D 25 hydroxy Standing Status: Future Number of Occurrences: 1 Standing Expiration Date: 01/06/2026 Order Specific Question: Print requisition? Answer: No Lipid panel Standing Status: Future Number of Occurrences: 1 Standing Expiration Date: 01/06/2026 Order Specific Question: Print requisition? Answer: No Comprehensive metabolic panel Standing Status: Future Number of Occurrences: 1 Standing Expiration Date: 01/06/2026 Order Specific Question: Print requisition? Answer: No CBC Standing Status: Future Number of Occurrences: 1 Standing Expiration Date: 01/06/2026 Order Specific Question: Print requisition? Answer: No Electronically signed by Pedro Lowry NP on January 06, 2025 documented in this encounter [facility] Evaluation note Note Date & Type Note Facility Evaluation note Diagnosis Medicare annual wellness visit, subsequent- Primary Polyneuropathy Unspecified hereditary and idiopathic peripheral neuropathy Gastroesophageal reflux disease without esophagitis Esophageal reflux Panlobular emphysema (CMS/HCC) Other emphysema Shortness of breath Dyslipidemia (CMS/HCC) Other and unspecified hyperlipidemia Seasonal allergies Allergic rhinitis, cause unspecified Decreased estrogen level Anemia, unspecified type Vitamin D deficiency Screening for thyroid disorder Routine general medical examination at health care facility Routine general medical examination at a health care facility Encounter for screening mammogram for malignant neoplasm of breast Screening for lung cancer Tobacco dependence Tobacco use disorder Nicotine dependence, cigarettes, uncomplicated Acute pain of left knee Change in skin mole documented in this encounter [facility] Evaluation note Note Date & Type Note Facility Evaluation note Diagnosis Inflamed seborrheic keratosis documented in this encounter [facility] Reason for visit Narrative Consultation (Routine) - Closed Note Date & Type Note Facility Reason for visit Narrative Specialty Diagnoses / Procedures Referred By Jenni reinoso Referred To Contact Dermatology Diagnoses Change in skin mole Procedures NE OFFICE/OUTPATIENT NEW HIGH MDM 60 MINUTES Pedro Lowry, ELEMENTARY EDUCATOR [address] [facility] [address] [place] [address] Phone: tel: fax: Nicole Lucero MD [address] [place] [address] Phone: tel: fax: Referral ID Status Reason Start Date Expiration Date V isits Requested Visits Authorized [id number] Closed Specialty Services Required 01/06/2025 07/05/2025 1 1 [facility] Summary Purpose Family History No Family History Records FoundNo Family History Records FoundNo Family History Records Found Advance Directives No Advanced Directives Records FoundNo Advanced Directives Records FoundNo Advanced Directives Records Found Additional Source Comments INFORMATION SOURCE (unrecogn ized section and content) DATE CREATED AUTHOR 12/08/2021 [facility] dical Specialist DATE CREATED AUTHOR AUTHOR'S ORGANIZ ATION 01/05/2023 [facility] pital DATE CREATED AUTHOR AUTHOR'S ORGANIZ ATION 01/14/2025 [facility] dical Specialists EPIC Care Teams (unrecognized sec tion and content) Water Filter Cleaner Relationship Specialty Start Date End Date Enio Marroquin MD [address] [facility] [address] [place] [address] PCP - [facility] 10/15/21 Enio Marroquin MD [address] [facility] [address] [place] [address] PCP - General Internal Medicine 04/29/23 Water Filter Cleaner Relationship Specialty Start Date End Date Enio Marroquin MD [address] [facility] [address] [place] [address] PCP - [facility] 10/15/21 Enio Marroquin MD [address] [place] [address] PCP - General Internal Medicine 04/29/23 Water Filter Cleaner Relationship Specialty Start Date End Date Enio Marroquin MD [address] [place] [address] PCP [facility] 10/15/21 Enio Marroquin MD [address] [place] [address] [place] [address] PCP - General Internal Medicine 04/29/23 Water Filter Cleaner Relationship Specialty Start Date End Date Enio Marroquin MD [address] [place] [address] [facility] 10/15/21 Enio Marroquin MD [address] [place] [address] PCP - General Internal Medicine 04/29/23 FOR RECORDS PERTAINING TO PATIENTS WHO ARE [...] BE BASED ON THE PRIMARY CLINICAL RECORDS. [facility]. provides no warranty or guarantee of the accuracy or completeness of information in this document.
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
== END 2025-01-27 08:32 | disposition home or self-care (01) ==
PROVIDERS: PCP Internal Medicine; Visit Provider Nurse Practitioner Family
DX: J43.1 Panlobular emphysema (principal); Z12.2 Encounter for screening for malignant neoplasm of respiratory organs; F17.200 Nicotine dependence, unspecified, uncomplicated; F17.210 Nicotine dependence, cigarettes, uncomplicated; E28.39 Other primary ovarian failure; J44.9 Chronic obstructive pulmonary disease, unspecified; R91.8 Other nonspecific abnormal finding of lung field; Z12.31 Encounter for screening mammogram for malignant neoplasm of breast; Z80.3 Family history of malignant neoplasm of breast; Z80.8 Family history of malignant neoplasm of other organs or systems
CPT/HCPCS: 71271; 77063; 77067; 77080